=== PATIENT | male | born 1980 | race American Indian/Alaskan Native ===

== ENCOUNTER 2018-03-24 17:46 | Emergency (ER) | payer OTHER ==
[2018-03-24 17:54] VITALS: BP 125/81
--- NOTE | 2018-03-24 22:17 | Emergency Department Report ---
Chief Complaint: Headache Stated Complaint: NASUESA/VOMITING Time Seen by Provider: 03/24/18 22:01 - HPI History of Present Illness: This is a 37-year-old -[place] male who presents with nausea or vomiting and headache for 6 days. Patient reports were reviewed and with nausea and vomiting after eating meals. Currently headache has resolved. Patient states he is afraid to eat due to symptoms after eating. He is taking Lortab and ibuprofen with no improvement of symptoms. Patient states after vomiting headache seems to improve. He last took Tylenol around 1430 today. Patient denies wearing glasses or contacts. Denies abdominal pain, recent travel, diarrhea, fever, and chest pain. - ROS Review of Systems: GENERAL: The patient is looking well, in no acute distress. HEENT: Denies otalgia, tinnitus, sinus pain, changes in vision or hearing, or headache. CHEST: denies SOB, cough, or wheezing. HEART: denies chest pain or palpitation. No PND. Denies claudication in lower extremities. ABDOMEN: No black or bloody stools. No abdominal pain, nausea, vomiting, or diarrhea. SKIN: denies rash. EXTREMITIES: No edema, cyanosis, or clubbing. - Exam Vital Signs: Vital Signs 03/24/18 17:50 Temperature 98.3 F Pulse Rate 56 L Respiratory 18 Rate Blood Pressure 125/81 O2 Sat by Pulse 97 Oximetry Physical Exam: Headache and nausea and vomiting resolved on physical exam. MSE screening note: Focused history and physical exam performed. Due to findings the following was ordered: BMP, CBC, urinalysis No radiograph obtained at this time patient is without acute headache and denies abdominal or flank pain. Patient discussed with Kristina Curry PA for follow-up of labs. ED Medical Decision Making - Lab Data Result diagrams: 03/24/18 22:25 03/24/18 22:25 ED Disposition for MSE Condition: Stable Referrals: PRIMARY CARE, [Primary Care Provider] - 3-5 Days
[2018-03-24 22:44] LABS: Hemoglobin 15.4 gm/dl (11.8-15.2); Mean Corpuscular HGB Conc 34 % (32-34); Mean Corpuscular Hemoglobin 30 pg (28-32); Mean Corpuscular Volume 88 fl (84-94); Platelet Count 204 K/mm3 (140-440); Red Blood Count 5.14 M/mm3 (3.65-5.03); Red Cell Distribution Width 12.8 % (13.2-15.2)
[2018-03-24 22:56] LABS: BUN/Creatinine Ratio 10; Blood Urea Nitrogen 10 mg/dL (9-20); Calcium 9.8 mg/dL (8.4-10.2); Hemolysis Index 5
[2018-03-25 00:06] LABS: Bilirubin,Urine NEG (Negative); Blood,Urine NEG (Negative); Color,Urine Yellow (Yellow); Mucus,Urine FEW /HPF; Protein,Urine <15 mg/dL mg/dL (Negative); Urobilinogen,Urine < 2.0 mg/dL (<2.0)
[2018-03-25 00:31] LABS: WBC,Urine < 1.0 /HPF (0.0-6.0)
--- NOTE | 2018-03-25 01:26 | Emergency Department Report ---
ED General Adult HPI - General Chief complaint: Headache Stated complaint: NASUESA/VOMITING Time Seen by Provider: 03/24/18 22:01 Source: patient Mode of arrival: Ambulatory Limitations: No Limitations - History of Present Illness Initial comments: This is a 37-year-old -[place] male who presents with nausea or vomiting and headache for 3 days. Patient reports Headache with nausea and vomiting after eating meals but has resolved. Currently headache has resolved. Patient states he is afraid to eat due to symptoms after eating. He is taking Lortab and ibuprofen with no improvement of symptoms. Patient states after vomiting headache seems to improve. He last took Tylenol around 1430 today. Patient denies wearing glasses or contacts. Denies abdominal pain, recent travel, diarrhea, fever, and chest pain. -: days(s) (3) Location: head Quality: stabbing, aching Consistency: intermittent Improves with: medication Worsens with: none Associated Symptoms: nausea/vomiting, other (blurred vision) - Related Data Previous Rx's Medication Instructions Recorded Last Taken Type Acetaminophen/Codeine [Tylenol #3] 1 tab PO Q6H PRN #20 tab 05/12/15 Unknown Rx Amoxicillin [Trimox CAP] 500 mg PO Q8H #30 capsule 05/12/15 Unknown Rx Fluticasone [Flonase] 2 spray NS QDAY #1 bottle 05/12/15 Unknown Rx Loratadine [Claritin] 10 mg PO DAILY #30 tablet 05/12/15 Unknown Rx Prednisone [predniSONE 10 mg 10 mg PO .TAPER #1 tab.ds.pk 05/12/15 Unknown Rx (6-Day Pack, 21 Tabs)] Allergies Allergy/AdvReac Type Severity Reaction Status Date / Time No Known Allergies Allergy Verified 03/24/18 17:50 ED Review of Systems ROS: Stated complaint: NASUESA/VOMITING Other details as noted in HPI ED Past Medical Hx - Past Medical History Previous Medical History?: No - Surgical History Additional Surgical History: Tonsillectomy, nasal surgery - Social History Smoking Status: Never Smoker Substance Use Type: None - Medications Home Medications: Home Medications Medication Instructions Recorded Confirmed Last Taken Type Acetaminophen/Codeine [Tylenol #3] 1 tab PO Q6H PRN #20 tab 05/12/15 Unknown Rx Amoxicillin [Trimox CAP] 500 mg PO Q8H #30 capsule 05/12/15 Unknown Rx Fluticasone [Flonase] 2 spray NS QDAY #1 bottle 05/12/15 Unknown Rx Loratadine [Claritin] 10 mg PO DAILY #30 tablet 05/12/15 Unknown Rx Prednisone [predniSONE 10 mg 10 mg PO .TAPER #1 tab.ds.pk 05/12/15 Unknown Rx (6-Day Pack, 21 Tabs)] ED Physical Exam - General Limitations: No Limitations General appearance: alert, in no apparent distress - Head Head exam: Present: atraumatic, normocephalic - ENT ENT exam: Present: mucous membranes moist - Respiratory Respiratory exam: Present: normal lung sounds bilaterally. Absent: respiratory distress - Cardiovascular Cardiovascular Exam: Present: regular rate, normal rhythm. Absent: systolic murmur, diastolic murmur, rubs, gallop - Neurological Exam Neurological exam: Present: alert, oriented X3 - Skin Skin exam: Present: warm, dry, intact, normal color. Absent: rash ED Course Vital Signs 03/24/18 17:50 Temperature 98.3 F Pulse Rate 56 L Respiratory 18 Rate Blood Pressure 125/81 O2 Sat by Pulse 97 Oximetry ED Medical Decision Making - Lab Data Result diagrams: 03/24/18 22:25 03/24/18 22:25 - Medical Decision Making Patient has been evaluated by this provider as well as nurse practitioner Rony. Basic labs ordered CBC CMP and urinalysis all came back within normal limits. Patient's complaints have resolved. Discussed patient that he should follow-up with a primary care provider I have listed one below. H and verbalized understanding Critical care attestation.: If time is entered above; I have spent that time in minutes in the direct care of this critically ill patient, excluding procedure time. ED Disposition Clinical Impression: Blurred vision, bilateral Headache Qualifiers: Headache type: unspecified Headache chronicity pattern: acute headache Intractability: intractable Qualified Code(s): R51 - Headache Disposition: DC-01 TO HOME OR SELFCARE Is pt being admited?: No Does the pt Need Aspirin: No Condition: Stable Instructions: Blurred Vision (ED) Additional Instructions: Please follow-up with your primary care provider I have listed one below. Referrals: PRIMARY CARE, [Primary Care Provider] - 3-[address] [facility] [Provider Group] - 3-5 Days Forms: Work/School Release Form(ED)
== END 2018-03-25 01:25 | disposition home or self-care (01) ==
LOC: ED 17:46
DX: R51 Headache (principal); H53.8 Other visual disturbances; R11.2 Nausea with vomiting, unspecified
CPT/HCPCS: 36415; 80048; 81001; 85027; 99283